=== PATIENT | female | born 1980 | race Hispanic/Latino ===

== ENCOUNTER 2017-04-05 16:42 | Emergency (ER) | payer OTHER ==
[2017-04-05 17:05] LABS: Bilirubin Negative (Negative); Blood, Urine Negative (Negative); Clarity Slightly Cloudy (Clear); Glucose, Urine (Dipstick) Negative (Negative); Leukocyte Negative (Negative); Nitrite Negative (Negative); Protein, Urine (Dipstick) Negative (Neg-Trace); Urobilinogen 0.2 mg/dL (0.2-1.0)
[2017-04-05 17:08] LABS: Pregnancy Test - Urine (BHCG) Negative (Negative); Pregu Control Background? CLEAR/WHITE (CLR/WHITE); Pregu Control Bar Appear? YES (CONTROL BAR)
[2017-04-05] MEDS ORDERED: Azithromycin 250 MG TAB ONE (17:26)
[2017-04-07 21:55] LABS: Chlamydia by PCR Not Detected (NotDetected); GC by PCR Not Detected (NotDetected)
== END 2017-04-05 17:37 | disposition home or self-care (01) ==
LOC: BURERS 16:42
DX: R10.2 Pelvic and perineal pain (principal); F41.9 Anxiety disorder, unspecified; F32.9 Major depressive disorder, single episode, unspecified; F17.210 Nicotine dependence, cigarettes, uncomplicated
CPT/HCPCS: 81003; 81025; 87480; 87491; 87510; 87591; 87660; 99283

== ENCOUNTER 2017-04-08 05:33 | Emergency (ER) | payer OTHER ==
[2017-04-08] MEDS ORDERED: hydrOXYzine 25 MG TAB ONE (05:53)
[2017-04-08] MEDS ORDERED: methylPREDNISolone Sod Succ/PF 125 MG/2 ML VIAL ONE (05:54)
== END 2017-04-08 06:37 | disposition home or self-care (01) ==
LOC: BURERS 05:33
DX: T78.40XA Allergy, unspecified, initial encounter (principal); Z88.1 Allergy status to other antibiotic agents; F41.9 Anxiety disorder, unspecified; F32.9 Major depressive disorder, single episode, unspecified; F17.210 Nicotine dependence, cigarettes, uncomplicated
CPT/HCPCS: 96372; J2930